=== PATIENT | female | born 1990 | race Asian ===

== ENCOUNTER 2023-03-05 06:05 | Day surgery (SDC) | payer OTHER ==
[~2023-03-05] VITALS: Ht 165.1 cm; Wt 57.3 kg
[2023-03-05] MEDS ORDERED: MULTTAB20 PO (07:30)
[2023-03-05 07:45] LABS: BASO % 0.3 % (0.0-1.0); EOS # 0.1 10^3/uL (0.0-0.5); EOS % 1.3 % (0.0-3.0); HEMATOCRIT 38.5 % (36.0-47.0); LYMPH % 28.3 % (24.0-44.0); MEAN CORPUSCULAR HEMOGLOBIN 32.1 pg (27.0-33.0); MEAN CORPUSCULAR HGB CONC 33.8 g/dl (32.0-36.5); MEAN CORPUSCULAR VOLUME 95.1 fl (80.0-96.0); MONO # 0.4 10^3/uL (0.0-0.8); NEUTROPHILS # 4.6 10^3/uL (1.5-8.5); NEUTROPHILS % 63.7 % (36.0-66.0); PLATELET COUNT, AUTOMATED 209 10^3/uL (150-450); RED BLOOD COUNT 4.05 10^6/uL (4.00-5.40); WHITE BLOOD COUNT 7.2 10^3/uL (4.0-10.0)
[2023-03-05 07:45] LABS: APPEARANCE, URINE CLEAR (CLEAR); BACTERIA, URINE AUTO 1+ (NEGATIVE); BILIRUBIN, URINE AUTO NEGATIVE (NEGATIVE); BLOOD, URINE BLOOD 3+ (NEGATIVE); COLOR, URINE YELLOW (YELLOW); GLUCOSE, URINE (UA) AUTO NEGATIVE (NEGATIVE); KETONE, URINE AUTO NEGATIVE (NEGATIVE); LEUKOCYTE ESTERASE, URINE AUTO TRACE (NEGATIVE); NITRITE, URINE AUTO NEGATIVE (NEGATIVE); PROTEIN, URINE AUTO NEGATIVE (NEGATIVE); RBC, URINE AUTO 5 /HPF (0-3); SPECIFIC GRAVITY URINE AUTO 1.003 (1.002-1.035); SQUAMOUS EPITHELIAL CELL UR AU 1 /HPF (0-6); UROBILINOGEN, URINE AUTO 0.2 mg/dL (0.0-2.0); WBC, URINE AUTO 3 /HPF (0-3)
[2023-03-05 09:31] LABS: GC DNA AMPLIFICATION NEGATIVE (NEGATIVE)
[2023-03-05 10:42] LABS: RSV AMPLIFICATION NEGATIVE (NEGATIVE)
[2023-03-05] MEDS ORDERED: ROCURONIUM BROMIDE 50MG/5ML VIAL As Ordered ONE (11:16)
[2023-03-05] MEDS ORDERED: SUCCINYLCHOLINE 100MG/5ML SYRINGE As Ordered ONE (11:16)
[2023-03-05] MEDS ORDERED: SUGAMMADEX SODIUM 500 MG/5 ML VIAL (BRIDION) As Ordered ONE (11:16)
[2023-03-05] MEDS ORDERED: LIDOCAINE 2% 100MG/5ML SDV (FOR ANES.) As Ordered ONE (11:16)
[2023-03-05] MEDS ORDERED: MIDAZOLAM INJ 2MG/2ML VIAL As Ordered ONE (11:16)
[2023-03-05] MEDS ORDERED: PHENYLephrine 500MCG 5ML (100MCG/ML) SYRINGE As Ordered ONE (11:16)
[2023-03-05] MEDS ORDERED: propofoL 200 MG/20 ML VIAL As Ordered ONE (11:16)
[2023-03-05] MEDS ORDERED: fentaNYL 100 MCG/2 ML INJECTION As Ordered ONE ×2 (11:16→11:23)
[2023-03-05] MEDS ORDERED: ONDANSETRON 4MG 2ML VIAL As Ordered ONE (11:16)
[2023-03-05] MEDS ORDERED: ACETAMINOPHEN 1000MG 100ML IV BAG As Ordered ONE (11:16)
[2023-03-05] MEDS ORDERED: KETOROLAC 60MG 2ML VIAL As Ordered ONE (11:16)
[2023-03-05] MEDS ORDERED: oxyCODONE 5MG TAB PO PRN (13:00)
[2023-03-05] MEDS ORDERED: MED REC CURRENTLY UNOBTAINABLE XX SCH (14:35)
[2023-03-05 15:01] VITALS: BP 109/70; TEMP 98.2; O2SAT 100
== END 2023-03-05 15:36 | disposition home or self-care (01) ==
LOC: M ED 06:05 → M SDC 06:06 → M ED 10:15 → M SDC 15:36
PROVIDERS: ATTEND Obstetrics & Gynecology
DX: O00.102 Left tubal pregnancy without intrauterine pregnancy (principal); N97.1 Female infertility of tubal origin
CPT/HCPCS: 59151; 76801; 76817; 81001; 84702; 85025; 86850; 86900; 86901; 87086; 87210; 87631; 87661; 87810; 87850; 88305; 93976; 99284; J0131; J0330; J0665; J1100; J1885; J2250; J2371; J2405; J3010